=== PATIENT | male | born 1935 | race Two or more races ===

== ENCOUNTER 2018-05-21 06:20 | Day surgery (SDC) | payer MEDICARE ==
[~2018-05-21 06:20] MED LIST: Buffered Lidocaine 0.9% SYRIN* 5 ML/SYR SYRINGE INTRADERM ONE
[2018-05-21] MEDS ORDERED: Sodium Bicarbonate 8.4% SYR* 10 ML SYRINGE ONE (07:01)
[2018-05-21] MEDS ORDERED: Atropine 1% OPHTH.SOL* 2 ML BOT - 2 ML ONE (07:01)
[2018-05-21] MEDS ORDERED: Triamcinolone Acetonide* 40 MG/ML 1 ML VIAL ONE (07:01)
[2018-05-21] MEDS ORDERED: Neomycin/Polymy/Dex OPTH.SUSP* MAXITROL 0.1% 5 ML ONE (07:01)
[2018-05-21] MEDS ORDERED: Acetylcholine 1:100 OPTH* OPHTH.SOLN ONE (07:01)
[2018-05-21] MEDS ORDERED: Lidocaine 2% EPI 1:200000 MPF*10-20 ML VIAL ONE (07:01)
[2018-05-21] MEDS ORDERED: Lidocaine 2% PF* 10 ML AMP ONE (07:01)
[2018-05-21] MEDS ORDERED: Hyaluronidase OVINE* 200 UNIT/ML ML SUBCUT ONE (07:02)
[2018-05-21] MEDS ORDERED: BSS OPTH.SOL* BTL ONE (07:03)
[2018-05-21] MEDS ORDERED: fentaNYL* 50 MCG/ML 2 ML VIAL (100 MCG VIAL) ONE ×2 (07:10→08:20)
[2018-05-21] MEDS ORDERED: Midazolam* 1 MG/ML 2 ML VIAL (2 MG) ONE (07:11)
[2018-05-21] MEDS ORDERED: Naloxone* 0.4 MG/ML 1 ML VIAL IV PRN (07:44)
[2018-05-21] MEDS ORDERED: Acetaminophen TAB* 325 MG PO PRN (07:44)
[2018-05-21] MEDS ORDERED: Ondansetron INJ* 2 MG/ML VIAL IV PRN (07:44)
[2018-05-21] MEDS ORDERED: Propofol* 10 MG/ML 20 ML BTL IV PUSH ONE (08:20)
[2018-05-21] MEDS ORDERED: Lidocaine 2% PF * 5 ML VIAL ONE (08:20)
[2018-05-21 10:21] VITALS: BP 133/50
--- NOTE | 2018-05-22 12:14 | OP ---
DATE OF OPERATION: 05/21/18 [facility] DATE OF : 39 SURGEON: Bradley Simpson MD ANESTHESIA: Local with MAC. PRE-OP DIAGNOSIS: Uncontrolled glaucoma, right eye. POST-OP DIAGNOSIS: Uncontrolled glaucoma, right eye. OPERATIVE PROCEDURE: Ahmed valve insertion, right eye. COMPLICATIONS: None. DESCRIPTION OF PROCEDURE: The patient was given retrobulbar anesthesia in the operating room. 2% lidocaine with epinephrine and 4 cc injected into the muscle cone without difficulty. The eye was prepped and draped in the usual sterile fashion. A speculum placed. A fornix-based conjunctival peritomy was performed with Marcia scissors from the 10 o'clock to 12 o'clock position. Hemostasis achieved with cautery. Ahmed valve primed and sutured to bare sclera , 10 mm posterior to the limbus using 2 interrupted 10-0 Prolene sutures through the footplates. Anterior chamber was entered using a 27-gauge needle and then a tube trimmed to length. Anterior chamber irrigated with Miochol and then with some DisCoVisc. The tube placed in the anterior chamber. The tube was sutured to the bare sclera using 2 interrupted 10-0 Prolene sutures. Donor sclera was cut to cover the tube and sutured in place with four 10-0 nylon sutures. Then, the conjunctiva was closed using a running locking 10-0 nylon suture. A 6-0 silk traction suture was placed through the superior limbus at the beginning of the case; this was removed. Kenalog 40 mg/mL, 1 mL was injected sub-Tenon's. Topical atropine and Maxitrol was given and then the eye was firmly patched. [id number]/[facility] #: [id number] [facility]
== END 2018-05-21 10:22 | disposition home or self-care (01) ==
LOC: OREAST 06:20
PROVIDERS: ATTEND Specialist
DX: H40.1113 Primary open-angle glaucoma, right eye, severe stage (principal); I10 Essential (primary) hypertension; I25.10 Atherosclerotic heart disease of native coronary artery without angina pectoris; I47.1 Supraventricular tachycardia; G47.33 Obstructive sleep apnea (adult) (pediatric); E78.5 Hyperlipidemia, unspecified; D64.9 Anemia, unspecified
CPT/HCPCS: A9270-GY; C1783; J2001; J2250; J2704; J3010; J3301; J3471

== ENCOUNTER 2019-10-28 09:40 | Day surgery (SDC) | payer MEDICARE ==
[~2019-10-28 09:40] MED LIST changes: +Acetaminophen TAB* 325 MG PO PRN; -Buffered Lidocaine 0.9% SYRIN* 5 ML/SYR SYRINGE INTRADERM ONE; +Buffered Lidocaine 1% SYRIN* 1 ML/SYRINGE INTRADERM ONE; +Cyclopentolate 1% OPTH.SOL* 2 ML BTL ONE; +Ketorolac 0.5% OPHTH (NF) 0.5 % 5 ML BTL ONE; +Lidocaine 1% MPF ** 5 ML VIAL ONE; +Lidocaine 2% w/ EPI 1:200,000* 20 ML SDV VIAL ONE; +Neomycin/Polymy/Dex OPTH.SUSP* MAXITROL 0.1% 5 ML ONE; +Phenylephrine OPHTH SOL 2.5%* 2 ML ONE; +Povidone Iodine 5% OPTH* 30 ML BTL ONE; +Proparacaine 0.5% OPHTH.SOL* 15 ML BTL ONE; +acetaZOLAMIDE TAB* 250 MG ONE; +mitoMYcin 0.2 MG (0.02%) in Sterile Water for Inj* 1 ML OPHTHALMIC SCH
[2019-10-28] MEDS ORDERED: Midazolam* 1 MG/ML 2 ML VIAL (2 MG) ONE (11:28)
[2019-10-28] MEDS ORDERED: fentaNYL* 50 MCG/ML 2 ML VIAL (100 MCG VIAL) ONE (11:53)
[2019-10-28 12:18] VITALS: BP 130/65
--- NOTE | 2019-10-28 22:05 | OP ---
OPERATIVE NOTE: DATE OF OPERATION: 10/28/19 - [facility] DATE OF : 39 SURGEON: Bradley Simpson MD ANESTHESIA: Local with MAC. PREOPERATIVE DIAGNOSIS: Glaucoma, left eye. POSTOPERATIVE DIAGNOSIS: Glaucoma, left eye. OPERATIVE PROCEDURE: Insertion of XEN stent, left eye. COMPLICATIONS: None. DESCRIPTION OF PROCEDURE: The eye was prepped and draped in the usual sterile fashion. Lid speculum was placed. A 6-0 silk suture placed through the superior limbus and the eye rotated inferiorly. Paracentesis made at the 2 o' clock position with the 75 blade. XEN stent introduced subconjunctivally at the 7 mm posterior to the limbus at 12 o'clock, engaging the sclera at 2.5 mm posterior to the limbus and entering the anterior chamber. The device was deployed using a shooter without difficulty. Position checked with a 3-mm lens. Mitomycin-C 0.2 mg/mL, 0.2 mL injected subconjunctivally and then traction suture removed and the eye irrigated with balanced salt solution in the anterior chamber. [id number]/[facility] #: [id number] [facility]
== END 2019-10-28 12:30 | disposition home or self-care (01) ==
LOC: OREAST 09:40
PROVIDERS: ATTEND Specialist
DX: H40.1123 Primary open-angle glaucoma, left eye, severe stage (principal); H35.3132 Nonexudative age-related macular degeneration, bilateral, intermediate dry stage; I10 Essential (primary) hypertension; Z96.653 Presence of artificial knee joint, bilateral; I47.1 Supraventricular tachycardia; I25.10 Atherosclerotic heart disease of native coronary artery without angina pectoris; Z95.1 Presence of aortocoronary bypass graft; G47.33 Obstructive sleep apnea (adult) (pediatric); N40.0 Benign prostatic hyperplasia without lower urinary tract symptoms
CPT/HCPCS: A9270-GY; C1725; J2250; J3010; J9280